=== PATIENT | male | born 1935 | race Caucasian/White ===

== ENCOUNTER 2017-03-22 19:44 | Inpatient (IN) | payer OTHER ==
--- NOTE | ~2017-03-22 | DS ---
Discharge Summary [facility] [address] [place]. [address] NAME: BRANNON ALTMAN : 39 STATUS : DIS IN PAT#: [id number] AGE: 81 ADM/REG DATE : 03/22/17 MR#: [id number] REPORT SERV DATE: 04/08/17 DICTATED BY: GABI CALDERON JR. DATE: 04/05/17 REPORT STATUS : Draft TRANSCRIBED BY: HARDEEP DATE: 04/05/17 Data Collection from hospitalization DISCHARGE DIAGNOSIS(ES): 1. Metastatic cancer suspicious for lung cancer. 2. History of coronary artery disease, status post cardiac stents in 2012. 3. Hypertension. 4. Sleep apnea. CONSULTATIONS: None. PROCEDURES PERFORMED: 1. CT of the chest without contrast, 03/22/2017. 2. Bronchoscopy, right thoracoscopy with right parietal pleural biopsy for diagnosis, chemical pleurodesis with Betadine, placement of PleurX catheter, and intercostal nerve block, 03/23/2017. PATHOLOGY: 1. Right parietal pleura biopsies positive for adenocarcinoma consistent with primary pulmonary adenocarcinoma. 2. Right pleural fluid thoracentesis, ThinPrep smears and cell block, benign, no malignant cells identified. MEDICATIONS: Aspirin 81 mg daily, Motrin 600 mg daily as needed, Lipitor 40 mg at bedtime, Coreg 6.25 mg twice daily, folic acid 1 mg every morning, Prinivil 10 mg every morning, Ventolin HFA two puffs INH every 4 hours as needed, methotrexate 12.5 mg subcutaneously every seven days on Wednesday, Flonase nasal spray one spray each nostril twice daily as needed, HydroDIURIL 12.5 mg daily as needed, and Percocet 5/325 one or two every four to six hours as needed. CONDITION AT DISCHARGE: Upon discharge, he did appear to be doing well and had no complaints. DISPOSITION: He had been discharged with transfer to [facility] to continue an 1800-calorie ADA cardiac diet. He was also to continue oxygen at 4 L by nasal cannula. He was to continue with physical therapy and occupational therapy as well. He was to follow up as directed. HOSPITAL COURSE: This 81-year-old male was in his usual state of health until the week prior to admission when he began progressively dyspneic and presented to the emergency department and was noted to have a large right pleural effusion. He underwent an ultrasound-guided thoracentesis with drainage of over 1 L of pleural fluid and was discharged home. He re- presented on the day of admission to the emergency department with again progressive shortness of breath. A chest x-ray was obtained at that time and demonstrated a recurrent right pleural effusion. We were asked to accept transfer of the patient for right thoracoscopy with pleurodesis and pleural biopsies for recurrent right pleural effusion of unknown etiology. He had a significant past smoking history, a pack per day for approximately 30 years and quit over 20 years ago. He also had a strong family history of Discharge Summary [address] [place]. [address] NAME: BRANNON ALTMAN : 39 STATUS : DIS IN PAT#: [id number] AGE: 81 ADM/REG DATE : 03/22/17 MR#: [id number] REPORT SERV DATE: 04/08/17 DICTATED BY: GABI CALDERON JR. DATE: 04/05/17 REPORT STATUS : Draft TRANSCRIBED BY: HARDEEP DATE: 04/05/17 lung cancer, having two sisters as well as a brother from complications of lung cancer. He denied any recent respiratory illness or lower extremity edema. He presented for treatment of his recurrent right pleural effusion and further evaluation. Upon admission to the hospital, he had been placed on electrolyte replacement orders. He had also been placed on preop thoracoscopy admitting orders. He did undergo the above CT of the chest without contrast on the day of admission. Following the day of admission, surgery had been discussed with the patient and he was agreeable to proceed. He was then taken to the operating room where he did undergo the above bronchoscopy. He did tolerate this well and was transferred to the recovery room. On postop day 1, he was afebrile and his vital signs were stable. He was continued on supportive care. His lungs did reveal decreased breath sounds, greater on the right. He was to be weaned from be BiPAP as tolerated, and his chest tube was to be continued to suction. On postop day #2, he did continue in stable condition and his chest x-ray revealed right basilar atelectasis. He was continued on his current medications. He was being evaluated for transfer to [facility]. On postop day #3, his temperature was at 99.5. His O2 saturation was at 99% on 4 L by nasal cannula. His chest x-ray did not reveal any pneumothorax; however, he did still have right basilar atelectasis noted. He had been evaluated by Physical Therapy. On 03/27, he did still have a low-grade temperature at 99.4, his vital signs were otherwise stable, and he was continued on supportive care. He did continue to slowly improve and had continued to do well. He was then discharged on 03/29 with the above instructions. Information collected by: Nola Singleton. I submit the above information as my discharge summary. RW/MODL Gabi Calderon Jr., M.D. / [id number] CC: Rose Noble Jr., M.D. [facility]
--- NOTE | ~2017-03-22 | HP ---
History And Physical [place] [id number] [facility] [place]. [address] NAME: BRANNON ALTMAN : 39 STATUS : ADM IN [facility]#: [id number] AGE: 81 ADM/REG DATE : 03/22/17 MR#: [id number] REPORT SERV DATE: 03/23/17 DICTATED BY: ARIANA GROSSMAN DATE: 03/23/17 REPORT STATUS : Draft TRANSCRIBED BY: MODL DATE: 03/23/17 DATE OF ADMISSION: 03/22/2017 REASON FOR TRANSFER: Recurrent right pleural effusion. BRIEF HISTORY: This is a 81-year-old white male, who was in his usual state of health until last week when he began progressively dyspneic and presented to the emergency department and was noted to have a large right pleural effusion. He underwent an ultrasound-guided thoracentesis with drainage of over a liter of pleural fluid and was discharged home. He re presented yesterday morning to the emergency department with again progressive shortness of breath. A chest x-ray was obtained at that time and demonstrated a recurrent right pleural effusion. We were asked to accept transfer of the patient for right thoracoscopy with pleurodesis and pleural biopsies for recurrent right pleural effusion of unknown etiology. The patient has a significant past smoking history, a pack per day for approximately 30 years and quit over 20 years ago. He also has a strong family history of lung cancer, having two sisters as well as a brother from complications of lung cancer. He denies any recent respiratory illness or lower extremity edema. He presents today for treatment of his recurrent right pleural effusion. PAST MEDICAL HISTORY: Significant for coronary artery disease, status post cardiac stents in 2012. He also has hypertension. 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 He previously smoked one pack of cigarettes a day for approximately 30 years, but quit over 20 years ago. SURGICAL HISTORY: Significant for bilateral knee replacement as well as cholecystectomy and cardiac stenting. He is also to undergo a right total hip replacement in the near future. FAMILY HISTORY: Significant for coronary artery disease as well as several siblings with history of lung cancer. ALLERGIES: NONE. HOME MEDICATIONS: Include albuterol, aspirin 81 mg 1 p.o. daily, Lipitor 40 mg p.o. daily, Coreg 6.25 mg p.o. twice daily, Flonase twice daily, folic acid 1 mg daily, hydrochlorothiazide 12.5 mg p.o. daily, Motrin 600 mg as needed, lisinopril 10 mg p.o. daily. REVIEW OF SYSTEMS: Significant for shortness of breath. A complete 12-point review of systems was performed. All other systems are negative except for the above-mentioned pertinent positives in the history of present illness. PHYSICAL EXAMINATION: VITAL SIGNS: Oxygen saturation 98% on 4 L, blood pressure 135/63, temperature 98.4, heart History And Physical [address] [address] NAME: BRANNON ALTMAN : 39 STATUS : ADM IN [facility]#: [id number] AGE: 81 ADM/REG DATE : 03/22/17 MR#: [id number] REPORT SERV DATE: 03/23/17 DICTATED BY: ARIANA GROSSMAN DATE: 03/23/17 REPORT STATUS : Draft TRANSCRIBED BY: HARDEEP DATE: 03/23/17 rate 80. Weight 130 kg, height 5 feet 9 inches. GENERAL: This is a 81-year-old, white male, who is alert and oriented, in no acute distress. HEENT: Normocephalic, atraumatic. Pupils equal, round, reactive to light. Ears, nose, and throat without lesions or exudate. NECK: Supple. No lymphadenopathy, JVD, or bruits. Trachea midline. No obvious goiter. CHEST: Symmetrical with no obvious chest wall deformities. CARDIOVASCULAR: Regular rate and rhythm. S1, S2. No murmurs, rubs, or gallops. RESPIRATORY: Decreased breath sounds throughout the right and scattered rhonchi. ABDOMEN: Soft, nontender, nondistended. Positive bowel sounds in all 4 quadrants. No hepatosplenomegaly. : The patient voids without difficulty. Further examination was deferred. MUSCULOSKELETAL: No obvious kyphosis or scoliosis. SKIN: Warm and dry with normal turgor. No obvious breakdown lesions noted. NEUROLOGIC: No focal neurological deficits noted. PSYCHIATRIC: Normal mood and affect. He is pleasant. DATA: Laboratories: Sodium 145, potassium 4.5, BUN 19, creatinine 0.69, glucose 110. White blood cell count 7.0, hemoglobin 12.3, hematocrit 40.1, platelet count 148. CT of the chest dated 03/22/2017 demonstrating large right pleural effusion. No obvious lung masses or mediastinal adenopathy. PROBLEM LIST: 1. Recurrent right pleural effusion. 2. Past smoking history. 3. Family history of lung cancer. 4. Hypertension. 5. Coronary artery disease, status post cardiac stents. 6. Degenerative joint disease. IMPRESSION AND PLAN: This is a 81-year-old, white male, with a recurrent right pleural effusion of unknown etiology. He has had a thoracentesis approximately a week ago and presented to the emergency department yesterday morning with recurrent pleural effusion. We are asked to accept transfer for right thoracoscopy with pleurodesis as well as pleural biopsies and he does have a strong family history of lung cancer that certainly is an underlying suspicion for some form of malignancy. I discussed this with both the patient and his son. We will go ahead and keep the patient n.p.o. and plan for surgery tomorrow morning which will be a right thoracoscopy with pleurodesis and pleural biopsies. I discussed the risks, benefits, and expected outcomes of the procedure with the patient and his son. They agree to proceed as outlined above. AM/MODL Ariana Grossman NP History And Physical [address] [address] NAME: BRANNON ALTMAN : 39 STATUS : ADM IN [facility]#: [id number] AGE: 81 ADM/REG DATE : 03/22/17 MR#: [id number] REPORT SERV DATE: 03/23/17 DICTATED BY: ARIANA GROSSMAN DATE: 03/23/17 REPORT STATUS : Draft TRANSCRIBED BY: MODL DATE: 03/23/17 / [id number] CC: Rodrigo Calderon Jr., M.D.
--- NOTE | ~2017-03-22 | OP ---
Record Of Operation [facility] [address] [place]. [address] NAME: BRANNON ALTMAN : 39 STATUS : ADM IN PAT#: [id number] AGE: 81 ADM/REG DATE : 03/22/17 MR#: [id number] REPORT SERV DATE: 03/23/17 DICTATED BY: GABI CALDERON JR. DATE: 03/23/17 REPORT STATUS : Draft TRANSCRIBED BY: MODL DATE: 03/23/17 DATE OF PROCEDURE: 03/23/2017 PREOPERATIVE DIAGNOSES: Recurrent right pleural effusion of unknown etiology; known coronary artery disease, status post percutaneous catheter intervention; previous tobacco history with chronic obstructive pulmonary disease; sleep apnea; increased body mass index. POSTOPERATIVE DIAGNOSIS: Metastatic cancer, suspicious for lung cancer, final pathology pending. NAME OF OPERATION: Bronchoscopy, right thoracoscopy with right parietal pleural biopsy for diagnosis, chemical pleurodesis with Betadine, placement of PleurX catheter, and intercostal nerve block. SURGEON: Gabi Calderon M.D. RESIDENT SURGEON: Sedrick Hamm. POWER BALLAST MACHINE OPERATOR: Yoel Obrien. ANESTHESIA: General endotracheal. FINDINGS: The patient was noted to have a lot of mucus secretions and purulence in the airway. A therapeutic bronchoscopy was performed to clear the airway. The left-sided double lumen endotracheal tube was placed. Upon exploration of the right chest, there was a large serosanguineous effusion. Once the fluid was drained, there was obvious metastatic implant to the parietal pleural surface. There was also a large mass within the right middle lobe. Pleural biopsies were performed. Fluid was sent for cytology and cultures. A chemical pleurodesis was performed. Given the rapid reaccumulation of fluid and uncertainty as to the success of the pleurodesis, a PleurX catheter was also placed. Final pathology is pending. DETAILS OF OPERATION: After adequate general anesthesia, the patient was intubated. Bronchoscopy was performed noting the above findings. A left-sided double-lumen endotracheal tube was then placed. The patient was then positioned in the left lateral decubitus position with the right chest was prepped and draped in the routine sterile fashion. A small incision was made overlying the lower intercostal space. Through a single incision site, the fluid was evacuated. This had a malignant appearance to the fluid. Once the large effusion was drained, we could see obvious metastatic involvement of the parietal pleura. Pleural biopsies were then performed. Adequate hemostasis was obtained. An intercostal nerve block was performed. Betadine was then placed in the chest cavity for chemical pleurodesis. We also tunneled a PleurX catheter and placed in the chest cavity. The lung was reinflated. A 32-Wolof chest tube had also been placed. A single trocar site was closed with running Vicryl sutures. The skin was closed with running monofilament suture. A Dermabond dressing was applied. The procedure was terminated at this point. The patient tolerated the procedure well and returned back to the recovery room in stable Record Of Operation [address] [address] NAME: BRANNON ALTMAN : 39 STATUS : ADM IN [facility]#: [id number] AGE: 81 ADM/REG DATE : 03/22/17 MR#: [id number] REPORT SERV DATE: 03/23/17 DICTATED BY: GABI CALDERON JR. DATE: 03/23/17 REPORT STATUS : Draft TRANSCRIBED BY: HARDEEP DATE: 03/23/17 condition. SERGEY/HARDEEP Gabi Calderon Jr., M.D. / [id number] CC: Rose Noble Jr., M.D.
[~2017-03-22 19:44] MED LIST: ASAB PO; BRILINTA90 MG PO; COREG6 PO; INSPRA25 PO; LIPITOR40 PO; NITROSTAT0.4 MG SL; PRIN10 PO
[2017-03-23] MEDS ORDERED: VENTOLIN HFA INH (00:06)
[2017-03-23] MEDS ORDERED: FOLIC PO (00:07)
[2017-03-23] MEDS ORDERED: PRIN10 PO (00:08)
[2017-03-23] MEDS ORDERED: MTX50 SC (00:08)
[2017-03-23] MEDS ORDERED: ASAB PO (00:08)
[2017-03-23] MEDS ORDERED: IBU600 PO (00:09)
[2017-03-23] MEDS ORDERED: HCTZ12.5 PO (00:09)
[2017-03-23] MEDS ORDERED: FLONASE NAS (00:09)
[2017-03-23] MEDS ORDERED: LIPITOR40 PO (00:10)
[2017-03-23] MEDS ORDERED: COREG6 PO (00:10)
[2017-03-23 06:08] LABS: BASOPHILS 0.3 %; BASOPHILS ABSOLUTE 0.02 10/3/uL (0.0-0.16); EOSINOPHILS 0.6 %; EOSINOPHILS ABSOLUTE 0.04 10/3/uL (0.0-0.53); HEMATOCRIT 40.1 % (40.0-51.0); HEMOGLOBIN 12.3 g/dL (13.6-17.8); IMMATURE GRANULOCYTES 0.4 %; IMMATURE GRANULOCYTES ABSOLUTE 0.03 10/3/uL (0.0-0.11); LYMPHOCYTES 12.5 %; LYMPHOCYTES ABSOLUTE 0.88 10/3/uL (0.67-4.30); MEAN CORPUS HGB CONC 30.7 g/dL (32.0-36.0); MEAN CORPUSCULAR HEMOGLOB 28.7 pg (26.0-34.0); MEAN PLATELET VOLUME 10.7 fL (9.2-13.0); MONOCYTES 10.3 %; MONOCYTES ABSOLUTE 0.72 10/3/uL (0.21-1.20); NEUTROPHILS 75.9 %; NEUTROPHILS ABSOLUTE 5.33 10/3/uL (2.02-8.40); PLATELET COUNT 148 10/3/uL (150-400); RBC DISTRIBUTION WIDTH 16.1 % (12.0-16.0); RED CELL COUNT 4.28 10/6/uL (4.7-6.1)
[2017-03-23 06:12] LABS: MANUAL DIFF NO %; MEAN CORPUSCULAR VOLUME 93.7 fL (80-100)
[2017-03-23 06:16] LABS: BUN (BLOOD UREA NITROGEN) 19 MG/DL (6-23); CHLORIDE, SERUM 104 MMOL/L (96-112); CREATININE 0.69 MG/DL (0.70-1.30); GFR AFRICAN AMERICAN 105 ML/MIN (>=60); GFR NON AFRICAN AMERICAN 90 ML/MIN (>=60); GLUCOSE, SERUM 110 MG/DL (60-99); POTASSIUM, SERUM 4.5 MMOL/L (3.5-5.3); SODIUM, SERUM 145 MMOL/L (135-148)
[2017-03-23 06:17] LABS: INTERNATIONAL NORMAL RATI 1.1 UNITS (-); PARTIAL THROMBO TIME 32.9 SEC (22.5-37.2); PROTIME (NOT ORD) 14.4 SEC (12.0-14.5)
[2017-03-23 06:22] LABS: CO2 (CARBON DIOXIDE) 36 MMOL/L (24-34)
[2017-03-23 19:53] LABS: BE (BASE EXCESS) 6.5 MEQ/L (0 +/- 2.5); BIPAP 15/5 cm.H2O; CARBOXYHEMOGLOBIN 1.1 % (0-3); HCO3 (ACTUAL BICARBONATE) 34.3 MEQ/L (23-27); HEMOBLOGIN CONTENT 13.5 G/DL (14-18); INSTRUMENT SERIAL # 11843; METHEMOGLOBIN 0.1 % (0-3); O2 CONTENT 17.7 VOL% (18-24); OPERATOR ID 17370; PCO2 (CO2 TENSION) 64 MMHG (35-45); PO2 (O2 TENSION) 73 MMHG (79-93); SAMPLE Arterial; pH 7.35 (7.37-7.43)
[2017-03-23 20:00] LABS: BASOPHILS 0.2 %; BASOPHILS ABSOLUTE 0.02 10/3/uL (0.0-0.16); EOSINOPHILS 0.4 %; EOSINOPHILS ABSOLUTE 0.04 10/3/uL (0.0-0.53); HEMOGLOBIN 12.5 g/dL (13.6-17.8); IMMATURE GRANULOCYTES 0.4 %; IMMATURE GRANULOCYTES ABSOLUTE 0.04 10/3/uL (0.0-0.11); LYMPHOCYTES 9.9 %; LYMPHOCYTES ABSOLUTE 1.08 10/3/uL (0.67-4.30); MEAN CORPUS HGB CONC 31.3 g/dL (32.0-36.0); MEAN CORPUSCULAR HEMOGLOB 28.9 pg (26.0-34.0); MEAN CORPUSCULAR VOLUME 92.6 fL (80-100); MEAN PLATELET VOLUME 10.6 fL (9.2-13.0); MONOCYTES 4.7 %; MONOCYTES ABSOLUTE 0.52 10/3/uL (0.21-1.20); NEUTROPHILS 84.4 %; NEUTROPHILS ABSOLUTE 9.25 10/3/uL (2.02-8.40); PLATELET COUNT 147 10/3/uL (150-400); RBC DISTRIBUTION WIDTH 16.2 % (12.0-16.0); RED CELL COUNT 4.32 10/6/uL (4.7-6.1)
[2017-03-23 20:02] LABS: MANUAL DIFF NO %
[2017-03-23 20:17] LABS: BUN (BLOOD UREA NITROGEN) 21 MG/DL (6-23); CHLORIDE, SERUM 104 MMOL/L (96-112); CO2 (CARBON DIOXIDE) 35 MMOL/L (24-34); CREATININE 0.74 MG/DL (0.70-1.30); GFR AFRICAN AMERICAN 102 ML/MIN (>=60); GFR NON AFRICAN AMERICAN 88 ML/MIN (>=60); POTASSIUM, SERUM 4.9 MMOL/L (3.5-5.3); SODIUM, SERUM 145 MMOL/L (135-148)
[2017-03-23 20:21] LABS: GLUCOSE, SERUM 138 MG/DL (60-99)
[2017-03-23 21:01] LABS: BE (BASE EXCESS) 4.6 MEQ/L (0 +/- 2.5); HCO3 (ACTUAL BICARBONATE) 32.2 MEQ/L (23-27); INSTRUMENT SERIAL # 11843; METHEMOGLOBIN 0.2 % (0-3); OPERATOR ID 17370; PCO2 (CO2 TENSION) 61 MMHG (35-45); PO2 (O2 TENSION) 55 MMHG (79-93); SAMPLE Arterial; pH 7.34 (7.37-7.43)
[2017-03-23 21:02] LABS: BIPAP 16/8 cm.H2O
[2017-03-24 06:23] LABS: BASOPHILS 0.1 %; BASOPHILS ABSOLUTE 0.01 10/3/uL (0.0-0.16); EOSINOPHILS 0 %; HEMATOCRIT 42.6 % (40.0-51.0); HEMOGLOBIN 13.4 g/dL (13.6-17.8); IMMATURE GRANULOCYTES 0.2 %; IMMATURE GRANULOCYTES ABSOLUTE 0.03 10/3/uL (0.0-0.11); LYMPHOCYTES 3.4 %; LYMPHOCYTES ABSOLUTE 0.44 10/3/uL (0.67-4.30); MEAN CORPUS HGB CONC 31.5 g/dL (32.0-36.0); MEAN CORPUSCULAR HEMOGLOB 29.1 pg (26.0-34.0); MEAN CORPUSCULAR VOLUME 92.6 fL (80-100); MONOCYTES 3.2 %; MONOCYTES ABSOLUTE 0.42 10/3/uL (0.21-1.20); NEUTROPHILS 93.1 %; NEUTROPHILS ABSOLUTE 12.22 10/3/uL (2.02-8.40); PLATELET COUNT 159 10/3/uL (150-400); RBC DISTRIBUTION WIDTH 16.2 % (12.0-16.0); WHITE BLOOD CELLS 13.1 10/3/uL (4.5-10.5)
[2017-03-24 06:24] LABS: MANUAL DIFF NO %
[2017-03-24 06:34] LABS: CALCIUM, SERUM 9.2 MG/DL (8.5-10.4); CHLORIDE, SERUM 103 MMOL/L (96-112); CO2 (CARBON DIOXIDE) 31 MMOL/L (24-34); GFR AFRICAN AMERICAN 83 ML/MIN (>=60); GFR NON AFRICAN AMERICAN 71 ML/MIN (>=60); SODIUM, SERUM 140 MMOL/L (135-148)
[2017-03-24 06:36] LABS: BUN (BLOOD UREA NITROGEN) 28 MG/DL (6-23); GLUCOSE, SERUM 189 MG/DL (60-99)
[2017-03-24 07:59] LABS: BE (BASE EXCESS) 4.8 MEQ/L (0 +/- 2.5); BIPAP 18/6 cm.H2O; CARBOXYHEMOGLOBIN 0.8 % (0-3); HCO3 (ACTUAL BICARBONATE) 32.7 MEQ/L (23-27); HEMOBLOGIN CONTENT 13.6 G/DL (14-18); INSTRUMENT SERIAL # 11843; METHEMOGLOBIN 0.3 % (0-3); O2 CONTENT 18.4 VOL% (18-24); OPERATOR ID 35188; PCO2 (CO2 TENSION) 64 MMHG (35-45); PO2 (O2 TENSION) 97 MMHG (79-93); SAMPLE Arterial; pH 7.33 (7.37-7.43)
== END 2017-03-29 17:41 | DRG 167 ==
LOC: 5NO 19:44 → CVICU 03-23 22:45 → 5NO 03-24 15:51
PROVIDERS: Nurse Practitioner Acute Care; Thoracic Surgery (Cardiothoracic Vascular Surgery)
PROC: 0BBN4ZX Excision of Right Pleura, Percutaneous Endoscopic Approach, Diagnostic (ICD-10-PCS; 2017-03-23)
PROC: 0W9940Z Drainage of Right Pleural Cavity with Drainage Device, Percutaneous Endoscopic Approach (ICD-10-PCS; 2017-03-23)
PROC: 3E0L3GC Introduction of Other Therapeutic Substance into Pleural Cavity, Percutaneous Approach (ICD-10-PCS; 2017-03-23)
PROC: 3E0T3BZ Introduction of Anesthetic Agent into Peripheral Nerves and Plexi, Percutaneous Approach (ICD-10-PCS; 2017-03-23)
PROC: 0BJ08ZZ Inspection of Tracheobronchial Tree, Via Natural or Artificial Opening Endoscopic (ICD-10-PCS; principal; 2017-03-23 15:45)
DX: C34.91 Malignant neoplasm of unspecified part of right bronchus or lung (principal); Z68.41 Body mass index [BMI] 40.0-44.9, adult; J44.9 Chronic obstructive pulmonary disease, unspecified; C78.2 Secondary malignant neoplasm of pleura; J98.11 Atelectasis; I25.10 Atherosclerotic heart disease of native coronary artery without angina pectoris; G47.33 Obstructive sleep apnea (adult) (pediatric); E66.9 Obesity, unspecified; Z95.5 Presence of coronary angioplasty implant and graft; I10 Essential (primary) hypertension; Z87.891 Personal history of nicotine dependence; Z96.653 Presence of artificial knee joint, bilateral; Z80.1 Family history of malignant neoplasm of trachea, bronchus and lung
CPT/HCPCS: 36415; 36600; 71010; 71020; 71250; 80048; 82805; 83735; 85025; 85610; 85730; 86850; 86900; 86901; 87015; 87070; 87075; 87102; 87116; 87205; 87641; 88112; 88305; 88341; 88342; 88344; 93005; 94640; 94660; 97110-GP; 97116-GP; 97162-GP; A9270-GY; C1729; C1751; C1769; G8978-CJ-GP; G8979-CI-GP; J0690; J2250; J2270; J2370; J2710; J2795; J3010